=== PATIENT | female | born 1990 | race Two or more races ===

== ENCOUNTER 2017-02-12 00:02 | Emergency (ER) | payer OTHER ==
[2017-02-12] MEDS ORDERED: ONDANSETRON 4 MG/2 ML VIAL IVP STA (00:15)
[2017-02-12] MEDS ORDERED: HYDROmorphone 1 MG/ML SYRINGE IVP STA (00:15)
[2017-02-12] MEDS ORDERED: SODIUM CHLORIDE 0.9% 1,000 ML IV ONE ×2 (00:15)
--- NOTE | 2017-02-12 00:17 | ED Physician Documentation ---
PD HPI NVD - Stated complaint Stated Complaint: ABDOMINAL PAIN - Chief complaint Chief Complaint: Abd Pain - History obtained from History obtained from: Patient, Family - History of Present Illness Timing - onset: How many days ago (3) Timing - duration: Days (3) Timing - details: Gradual onset, Waxing and waning Pain level max: 8 Pain level now: 8 Associated symptoms: Abdominal pain (epigastric). No: Hematemesis, Melena, Hematochezia, Dizzy, Near syncope / syncope, Loss of appetite, Weight loss, Dysuria, Hematuria Contributing factors: No: Sick contact, Bad food, Travel, Recent antibiotics, Alcohol use, Anticoagulated, Diabetes Improved by: Other (nothing) Worsened by: Eating Similar symptoms before: Has not had sx before Recently seen: Not recently seen Review of Systems Ten Systems: 10 systems reviewed and negative Constitutional: denies: Fever, Chills, Myalgias Ears: denies: Ear pain Nose: denies: Rhinorrhea / runny nose, Congestion Cardiac: denies: Chest pain / pressure Respiratory: denies: Cough, Wheezing GI: reports: Abdominal Pain, Nausea, Vomiting, Diarrhea. denies: Constipation, Hematemesis, Bloody / black stool : denies: Dysuria, Frequency, Hesitancy, Now EGA Skin: denies: Rash Musculoskeletal: denies: Neck pain, Back pain Neurologic: denies: Headache PD PAST MEDICAL HISTORY - Past Medical History Respiratory: Asthma Psych: ADD/ADHD - Past Surgical History Past Surgical History: No - Present Medications Home Medications: Ambulatory Orders Medication Instructions Recorded Confirmed Famotidine [Pepcid] 20 mg PO BID #30 tablet 02/12/17 Ondansetron Odt [Zofran] 4 mg TL Q6H PRN #10 tablet 02/12/17 - Allergies Allergies/Adverse Reactions: Allergies Allergy/AdvReac Type Severity Reaction Status Date / Time Penicillins Allergy Unknown Verified 03/01/14 16:41 - Social History Does the pt smoke?: No Smoking Status: Former smoker Does the pt drink ETOH?: Yes Does the pt have substance abuse?: No - POLST Patient has POLST: No PD ED PE NORMAL - Vitals Vital signs reviewed: Yes - General General: Alert and oriented X 3, No acute distress, Well developed/nourished - HEENT HEENT: PERRL, Moist mucous membranes - Neck Neck: Supple, no meningeal sign - Cardiac Cardiac: RRR, Strong equal pulses - Respiratory Respiratory: No respiratory distress, Clear bilaterally - Abdomen Abdomen: Soft, Non distended, Other (TTP epigastric without peritoneal signs. neg murphys) - Back Back: No CVA TTP, No spinal TTP - Derm Derm: Warm and dry - Neuro Neuro: Alert and oriented X 3 - Psych Psych: Normal mood, Normal affect Results - Vitals Vitals: Vital Signs - 24 hr 02/12/17 02/12/17 00:08 01:21 Temperature 36.5 C 36.6 C Heart Rate 70 78 Respiratory 18 18 Rate Blood Pressure 136/73 H 99/55 L O2 Saturation 99 100 Oxygen O2 Source Room air - Labs Labs: Laboratory Tests 02/12/17 02/12/17 00:20 00:20 WBC 11.9 H RBC 4.89 Hgb 13.2 Hct 37.7 MCV 77.0 L MCH 27.0 MCHC 35.0 RDW 13.5 Plt Count 240 MPV 8.0 Neut # 9.8 H Lymph # 1.3 L [place] # 0.6 Eos # 0.2 Baso # 0.1 Absolute Nucleated RBC 0.00 Nucleated RBCs 0.0 Sodium 139 Potassium 3.1 L Chloride 103 Carbon Dioxide 24 Anion Gap 12.0 BUN 13 Creatinine 0.6 Estimated GFR (MDRD) 123 Glucose 143 H Calcium 8.5 Total Bilirubin 0.5 AST 49 H ALT 32 Alkaline Phosphatase 112 Total Protein 7.5 Albumin 4.3 Globulin 3.2 Albumin/Globulin Ratio 1.3 Lipase 16 L PD MEDICAL DECISION MAKING - ED course Complexity details: reviewed results, re-evaluated patient, considered differential, d/w patient, d/w family ED course: Patient is a 26-year-old female who presents to the emergency department with nausea, vomiting, diarrhea for the past 3 days. Worsen tonight. Has been taken Imodium without relief. No recent antibiotics. No diarrhea here. Tolerating p.o. without difficulty. Pain and nausea resolved with pain medications, IV fluids, Zofran. Burning in the esophagus resolved with GI cocktail. Will place on an H2 lalit and Zofran for home. We will continue supportive care and follow-up with her doctor. Patient is afebrile. Abdomen was soft, nontender nondistended on serial examination. Patient and family counseled regarding signs and symptoms for which I believe and urgent re- evaluation would be necessary. Patient with good understanding of and agreement to plan and is comfortable going home at this time This document was made in part using voice recognition software. While efforts are made to proofread this document, sound alike and grammatical errors may occur. Departure - Departure Disposition: 01 Home, Self Care Clinical Impression: Gastroenteritis Condition: Good Instructions: ED Gastroenteritis Viral Follow-Up: Aleks Bernstein DO [Primary Care Provider] - Within 3 Days Prescriptions: Famotidine [Pepcid] 20 mg PO BID #30 tablet Ondansetron Odt [Zofran] 4 mg TL Q6H PRN #10 tablet PRN Reason: Nausea / Vomiting Comments: Drink plenty of fluids and rest. Return if you worsen. Discharge Date/Time: 02/12/17 01:40
[2017-02-12] MEDS ORDERED: ONDANSETRON 4 MG/2 ML VIAL ONE (00:22)
[2017-02-12] MEDS ORDERED: HYDROmorphone 1 MG/ML SYRINGE ONE (00:22)
[2017-02-12 00:32] LABS: BASOPHILS # (AUTO) 0.1 10^3/uL (0.0-0.1); BASOPHILS % (AUTO) 0.6 %; EOSINOPHILS # (AUTO) 0.2 10^3/uL (0.0-0.7); EOSINOPHILS % (AUTO) 1.4 %; HCT - HEMATOCRIT 37.7 % (37.0-47.0); HGB - HEMOGLOBIN 13.2 g/dL (12.0-16.0); LYMPHOCYTES # (AUTO) 1.3 10^3/uL (1.5-3.5); MONOCYTES # (AUTO) 0.6 10^3/uL (0.0-1.0); MONOCYTES % (AUTO) 4.9 %; NEUTROPHILS # (AUTO) 9.8 10^3/uL (1.5-6.6); NEUTROPHILS % (AUTO) 82.1 %; RED BLOOD COUNT 4.89 10^6/uL (4.20-5.40); RED CELL DISTRIBUTION WIDTH 13.5 % (12.0-15.0); UNCORRECTED WHITE BLOOD COUNT 11.9 x10^3/uL; WHITE BLOOD COUNT 11.9 x10^3/uL (4.8-10.8)
[2017-02-12 00:40] LABS: ALBUMIN/GLOBULIN RATIO 1.3 (1.0-2.2); BILIRUBIN,TOTAL 0.5 mg/dL (0.2-1.0); CALCIUM 8.5 mg/dL (8.5-10.3); CREATININE 0.6 mg/dL (0.4-1.0); POTASSIUM 3.1 mmol/L (3.5-5.0); TOTAL PROTEIN 7.5 g/dL (6.7-8.2)
[2017-02-12] MEDS ORDERED: LIDOCAINE VISCOUS 2% 15 ML UDC MM STA (00:46)
[2017-02-12] MEDS ORDERED: SUCRALFATE 1 GM/10 ML UDC PO STA (00:46)
[2017-02-12] MEDS ORDERED: MAG HYDROX/AL HYDROX/SIMETH 30 ML UDC PO STA (00:46)
[2017-02-12] MEDS ORDERED: PHENobarb/HYOSCY/ATROPINE/SCOP 5 ML SYRINGE PO STA (00:46)
[2017-02-12] MEDS ORDERED: FAMOTIDINE 20 MG TABLET PO STA (00:46)
[2017-02-12] MEDS ORDERED: LIDOCAINE VISCOUS 2% 15 ML UDC MM ONE (00:48)
[2017-02-12] MEDS ORDERED: MAG HYDROX/AL HYDROX/SIMETH 30 ML UDC ONE (00:49)
[2017-02-12] MEDS ORDERED: FAMOTIDINE 20 MG TABLET ONE (00:49)
[2017-02-12] MEDS ORDERED: PHENobarb/HYOSCY/ATROPINE/SCOP 5 ML SYRINGE PO ONE (00:49)
[2017-02-12] MEDS ORDERED: SUCRALFATE 1 GM/10 ML UDC ONE (00:49)
[2017-02-12 01:22] VITALS: BP 99/55
== END 2017-02-12 01:40 | disposition home or self-care (01) ==
LOC: ED 00:02
DX: K52.9 Noninfective gastroenteritis and colitis, unspecified (principal); J45.909 Unspecified asthma, uncomplicated; Z87.891 Personal history of nicotine dependence
CPT/HCPCS: 36415; 80053; 83690; 85025; 96374; 96375; 99283; 99284; A9270; J1170

== ENCOUNTER 2017-12-30 13:50 | Outpatient (CLI) | payer OTHER ==
[2017-12-30 15:00] LABS: BILIRUBIN,URINE NEGATIVE (NEGATIVE); GLUCOSE, URINE (UA) NEGATIVE (NEGATIVE); KETONES,URINE (UA) NEGATIVE (NEGATIVE); LEUKOCYTE ESTERASE, URINE NEGATIVE (NEGATIVE); NITRITE,URINE NEGATIVE (NEGATIVE); OCCULT BLOOD,URINE NEGATIVE (NEGATIVE); PROTEIN,URINE NEGATIVE (NEGATIVE); UROBILINOGEN,URINE 0.2 (NORMAL) E.U./dL (NORMAL)
[2017-12-30 15:14] VITALS: BP 123/76
[2017-12-30 15:17] LABS: BACTERIA,URINE None Seen /HPF (None Seen); CLARITY,URINE CLEAR (CLEAR); RBC,URINE 0-5 /HPF (0-5); SQUAMOUS EPITHELIAL CELL,UR MOD Squamous (<= Few)
== END 2017-12-30 16:15 | disposition home or self-care (01) ==
LOC: WFO 13:50 → FBP 13:52 → WFO 16:15
PROVIDERS: ATTEND Obstetrics & Gynecology
DX: O36.8120 Decreased fetal movements, second trimester, not applicable or unspecified (principal); Z3A.25 25 weeks gestation of pregnancy; O99.89 Other specified diseases and conditions complicating pregnancy, childbirth and the puerperium; R10.30 Lower abdominal pain, unspecified
CPT/HCPCS: 81001; 87086; 99213

== ENCOUNTER 2019-06-16 14:32 | Emergency (ER) | payer OTHER ==
[2019-06-16 14:59] VITALS: BP 128/73
[2019-06-16 15:21] LABS: BILIRUBIN,URINE NEGATIVE (NEGATIVE); GLUCOSE, URINE (UA) NEGATIVE (NEGATIVE); KETONES,URINE (UA) NEGATIVE (NEGATIVE); LEUKOCYTE ESTERASE, URINE NEGATIVE (NEGATIVE); NITRITE,URINE NEGATIVE (NEGATIVE); OCCULT BLOOD,URINE NEGATIVE (NEGATIVE); PH,URINE 6.5 PH (5.0-7.5); PROTEIN,URINE NEGATIVE (NEGATIVE); UROBILINOGEN,URINE 0.2 (NORMAL) E.U./dL (NORMAL)
[2019-06-16 15:24] LABS: CLARITY,URINE CLEAR (CLEAR); HCG UR QUAL NEGATIVE
[2019-06-16 15:26] LABS: BASOPHILS # (AUTO) 0.1 10^3/uL (0.0-0.1); EOSINOPHILS # (AUTO) 0.2 10^3/uL (0.0-0.7); HGB - HEMOGLOBIN 12.9 g/dL (12.0-16.0); LYMPHOCYTES % (AUTO) 26.9 %; MEAN CORPUSCULAR HGB CONC 33.3 g/dL (32.0-36.0); MEAN PLATELET VOLUME 10.3 fL (7.9-10.8); MONOCYTES # (AUTO) 0.5 10^3/uL (0.0-1.0); MONOCYTES % (AUTO) 6.4 %; NEUTROPHILS # (AUTO) 4.6 10^3/uL (1.5-6.6); NEUTROPHILS % (AUTO) 62.4 %; PLT - PLATELET COUNT 298 10^3/uL (130-450); RED BLOOD COUNT 4.78 10^6/uL (4.20-5.40); RED CELL DISTRIBUTION WIDTH 13.1 % (12.0-15.0); WHITE BLOOD COUNT 7.4 x10^3/uL (4.8-10.8)
[2019-06-16 15:48] LABS: ALBUMIN 4.5 g/dL (3.2-5.5); ALBUMIN/GLOBULIN RATIO 1.4 (1.0-2.2); BILIRUBIN,TOTAL 0.5 mg/dL (0.2-1.0); CALCIUM 9.2 mg/dL (8.5-10.3); CREATININE 0.6 mg/dL (0.4-1.0); TOTAL PROTEIN 7.7 g/dL (6.7-8.2)
== END 2019-06-16 17:52 | disposition left against medical advice (07) ==
LOC: ED 14:32
DX: Z53.21 Procedure and treatment not carried out due to patient leaving prior to being seen by health care provider (principal)
CPT/HCPCS: 36415; 80053; 81001; 81003; 81025; 83690; 85025; 87086

== ENCOUNTER 2019-09-08 09:00 | Emergency (ER) | payer OTHER ==
[2019-09-08 09:19] VITALS: BP 140/74
--- NOTE | 2019-09-08 09:32 | ED Physician Documentation ---
PD HPI URI - Stated complaint Stated Complaint: COUGH/FEMALE /SORE THROAT - Chief complaint Chief Complaint: General - History obtained from History obtained from: Patient - History of Present Illness Timing - onset: How many days ago (2) Timing duration: Days (2) Timing details: Abrupt onset, Still present Associated symptoms: Fever, Nasal congestion, Sore throat Contributing factors: Sick contact (her kids have been sick the past week), Other (also is concerned about possible retained tampon from couple days ago; no noted vag discharge but does not remember if removed it.) Similar symptoms before: Has not had sx before Review of Systems Constitutional: reports: Fever, Chills Nose: reports: Rhinorrhea / runny nose, Congestion Throat: denies: Sore throat Respiratory: reports: Cough GI: denies: Nausea, Vomiting, Diarrhea : reports: Vaginal bleeding (ending menstrual period). denies: Discharge Skin: denies: Rash, Lesions PD PAST MEDICAL HISTORY - Past Medical History Respiratory: Asthma Psych: ADD/ADHD - Past Surgical History Past Surgical History: No - Present Medications Home Medications: Ambulatory Orders Medication Instructions Recorded Confirmed Famotidine [Pepcid] 20 mg PO BID #30 tablet 02/12/17 Ondansetron Odt [Zofran] 4 mg TL Q6H PRN #10 tablet 02/12/17 Benzonatate [Tessalon Perle] 100 - 200 mg PO TID PRN #30 capsule 09/08/19 dexAMETHasone [Decadron] 4 mg PO DAILY #5 tablet 09/08/19 diphenhydrAMINE [Benadryl] 25 mg PO Q6H PRN #30 capsule 09/08/19 - Allergies Allergies/Adverse Reactions: Allergies Allergy/AdvReac Type Severity Reaction Status Date / Time Penicillins Allergy Unknown Verified 09/08/19 09:16 - Social History Does the pt smoke?: No Smoking Status: Former smoker Does the pt drink ETOH?: Yes Does the pt have substance abuse?: No - POLST Patient has POLST: No PD ED PE NORMAL - Vitals Vital signs reviewed: Yes - General General: Alert and oriented X 3, Well developed/nourished - HEENT HEENT: Ears normal, Moist mucous membranes, Pharynx benign, Other (nasal congestion) - Neck Neck: Supple, no meningeal sign, No adenopathy - Cardiac Cardiac: RRR, No murmur - Respiratory Respiratory: Clear bilaterally - Abdomen Abdomen: Soft, Non tender - Female Female : Fermentation Manager present, Other (normal exam with some menstrual blood in vault. No FB seen (could not lift cervix well to see behind it, but I don't think would be able to have a tampon in that area).) - Rectal Rectal: Deferred - Derm Derm: Normal color, Warm and dry Results - Vitals Vitals: Oxygen O2 Source Room air PD MEDICAL DECISION MAKING - ED course Complexity details: considered differential (sems like viral URI. Also she was concerned about retained tampon from couple days ago, so did vaginal exam, which did not show any FB. ), d/w patient Departure - Departure Disposition: 01 Home, Self Care Clinical Impression: Normal vaginal exam Upper respiratory infection Qualifiers: URI type: unspecified URI Qualified Code(s): J06.9 - Acute upper respiratory infection, unspecified Condition: Stable Record reviewed to determine appropriate education?: Yes Instructions: ED Upper Resp Infec No Abx Tx Follow-Up: Charity Vicente MD [Primary Care Provider] - Prescriptions: Benzonatate [Tessalon Perle] 100 - 200 mg PO TID PRN #30 capsule PRN Reason: Cough dexAMETHasone [Decadron] 4 mg PO DAILY #5 tablet diphenhydrAMINE [Benadryl] 25 mg PO Q6H PRN #30 capsule PRN Reason: Cough Comments: Stay well-hydrated. Decadron steroid for inflammation of the airways daily for 5 more days. Tessalon if needed for cough suppression. Stay well-hydrated. Tylenol ibuprofen for fevers and pains. You can use Benadryl also if needed for congestion and cough. Anticipate illness for several days to week. I did not see any retained tampons on the vaginal exam. Discharge Date/Time: 09/08/19 11:07
[2019-09-08] MEDS ORDERED: DEXAMETHASONE 10 MG/ML VIAL PO STA (09:52)
[2019-09-08] MEDS ORDERED: BENZONATATE 100 MG CAPSULE PO STA (09:52)
[2019-09-08] MEDS ORDERED: CHERRY SYRUP 10 ML UDC PO ONE (09:52)
[2019-09-08] MEDS ORDERED: diphenhydrAMINE 25 MG CAPSULE PO STA (09:52)
== END 2019-09-08 11:07 | disposition home or self-care (01) ==
LOC: ED 09:00
DX: J06.9 Acute upper respiratory infection, unspecified (principal); Z87.891 Personal history of nicotine dependence
CPT/HCPCS: 99283; A9270

== ENCOUNTER 2019-10-26 15:47 | Emergency (ER) | payer OTHER ==
[2019-10-26] MEDS ORDERED: ALBUTEROL NEB 2.5 MG/3 ML INH STA (16:08)
--- NOTE | 2019-10-26 16:09 | ED Physician Documentation ---
PD HPI URI - Stated complaint Stated Complaint: SOA,COUGH, NAUSEA - Chief complaint Chief Complaint: Resp - History obtained from History obtained from: Patient (Productive cough since yesterday with shortness of breath. No fevers or wheezing. No chest pain. No leg pain or swelling. Her whole family has been sick with URI symptoms.) Review of Systems Constitutional: denies: Fever, Chills Nose: reports: Rhinorrhea / runny nose, Congestion. denies: Sinus pressure / pain Throat: denies: Sore throat Cardiac: denies: Chest pain / pressure, Palpitations Respiratory: reports: Dyspnea, Cough GI: denies: Abdominal Pain PD PAST MEDICAL HISTORY - Past Medical History Respiratory: Asthma Psych: ADD/ADHD - Past Surgical History Past Surgical History: No - Present Medications Home Medications: Ambulatory Orders Medication Instructions Recorded Confirmed Albuterol Sulf [Ventolin Hfa 1 - 2 puffs INH Q4HR PRN #1 inhaler 10/26/19 Inhaler] Copper [Paragard T 380-A] 1 each IY 10/26/19 guaiFENesin/CODEINE [Robitussin AC] 5 - 10 ml PO Q6H PRN #120 ml 10/26/19 - Allergies Allergies/Adverse Reactions: Allergies Allergy/AdvReac Type Severity Reaction Status Date / Time Penicillins Allergy Unknown Verified 10/26/19 15:59 - Social History Does the pt smoke?: No Smoking Status: Former smoker Does the pt drink ETOH?: Yes Does the pt have substance abuse?: No - POLST Patient has POLST: No PD ED PE NORMAL - Vitals Vital signs reviewed: Yes - General General: Alert and oriented X 3, No acute distress - HEENT HEENT: Ears normal, Pharynx benign - Neck Neck: Supple, no meningeal sign, No bony TTP - Cardiac Cardiac: RRR, No murmur - Respiratory Respiratory: No respiratory distress, Clear bilaterally - Abdomen Abdomen: Non tender - Extremities Extremities: No edema, No calf tenderness / cord - Neuro Neuro: Alert and oriented X 3, Normal speech Results - Vitals Vitals: Vital Signs - 24 hr 10/26/19 10/26/19 15:56 16:23 Temperature 36.1 C L Heart Rate 91 90 Respiratory 24 20 Rate Blood Pressure 128/61 O2 Saturation 98 Oxygen O2 Source Room air - Rads (name of study) 2v chest Radiology: EMP read contemporaneously (normal) PD MEDICAL DECISION MAKING - ED course ED course: 29-year-old woman with productive cough, shortness of breath. No wheezing but felt better after albuterol here. I considered pulmonary embolism in this patient. Clinically the pretest probability of pulmonary embolism is less than 15%. I applied to the PERC rules as follows: The patient's age is under 50, heart rate less than 100, oxygen saturation greater than 94%, the patient does not have a history of DVT or PE. Patient has no recent trauma or surgery. The patient has no hemoptysis. The patient is not on exogenous estrogens. The patient does not have clinical signs suggesting DVT. As such the patient ruled out for pulmonary embolism by PERC criteria. Departure - Departure Disposition: 01 Home, Self Care Clinical Impression: Viral URI Condition: Good Record reviewed to determine appropriate education?: Yes Instructions: ED URI Viral Prescriptions: Albuterol Sulf [Ventolin Hfa Inhaler] 1 - 2 puffs INH Q4HR PRN #1 inhaler PRN Reason: Shortness Of Air/Wheezing guaiFENesin/CODEINE [Robitussin AC] 5 - 10 ml PO Q6H PRN #120 ml PRN Reason: Cough Comments: Return for new or worsening symptoms. Follow-up with your doctor towards the end of the week for recheck.
--- NOTE | 2019-10-26 17:01 | XRAY Report ---
Reason: cough dyspnea Procedure Date: 10/26/2019 Accession Number: [id number] / [id number] Procedure: XR - Chest 2 View X-Ray CPT Code: 23521 Final Report FULL RESULT: EXAM: CHEST RADIOGRAPHY EXAM DATE: 10/26/2019 04:23 PM. CLINICAL HISTORY: Cough dyspnea. COMPARISON: None. TECHNIQUE: 2 views. FINDINGS: Lungs/Pleura: No focal opacities evident. No pleural effusion. No pneumothorax. Normal volumes. Mediastinum: Heart and mediastinal contours are unremarkable. Other: None. IMPRESSION: No acute intrathoracic plain film abnormality. RADIA
[2019-10-26 17:18] VITALS: BP 120/80
== END 2019-10-26 17:16 | disposition home or self-care (01) ==
LOC: ED 15:47
DX: J06.9 Acute upper respiratory infection, unspecified (principal); J45.909 Unspecified asthma, uncomplicated; Z87.891 Personal history of nicotine dependence
CPT/HCPCS: 71046; 94640; 99283; 99284

== ENCOUNTER 2019-11-16 17:56 | Emergency (ER) | payer OTHER ==
[2019-11-16 18:05] VITALS: BP 148/74
[2019-11-16] MEDS ORDERED: DEXAMETHASONE 10 MG/ML VIAL PO STA (18:28)
[2019-11-16] MEDS ORDERED: CHERRY SYRUP 10 ML UDC PO ONE (18:28)
--- NOTE | 2019-11-16 18:31 | ED Physician Documentation ---
PD HPI URI - Stated complaint Stated Complaint: COUGH - Chief complaint Chief Complaint: Resp - History obtained from History obtained from: Patient - History of Present Illness Timing - onset: How many months ago (2) Timing duration: Months (2) Timing details: Gradual onset, Still present, Waxing and waning Associated symptoms: Nasal congestion, Rhinorrhea, Swollen nodes, Productive cough, Dyspnea Contributing factors: Sick contact Improves by: Rest, Medication, MDI/nebulizer Similar symptoms before: Diagnosis (bronchitis) Recently seen: Clinic, Emergency Dept - Additional information Additional information: 29-year-old female has developed cough after [place] she has had intermittent symptoms since then. Since the beginning of October she has had a cough productive of yellow-green phlegm and this is not gone away. She was seen here in the emergency department diet diagnosed with a viral URI given codeine and an inhaler she eventually went into see her primary care doctor was given a Z-Jose De Jesus and started this last week without any change in her symptoms. She continues to cough up yellow and green phlegm she feels the inhaler helps somewhat. She has nasal congestion and ear pain. Review of Systems Constitutional: denies: Fever Eyes: denies: Decreased vision Ears: reports: Ear pain Nose: reports: Rhinorrhea / runny nose, Congestion Throat: denies: Sore throat Cardiac: denies: Chest pain / pressure, Palpitations Respiratory: reports: Dyspnea, Cough GI: denies: Vomiting PD PAST MEDICAL HISTORY - Past Medical History Respiratory: Asthma Psych: ADD/ADHD - Past Surgical History Past Surgical History: No - Present Medications Home Medications: Ambulatory Orders Medication Instructions Recorded Confirmed Albuterol Sulf [Ventolin Hfa 1 - 2 puffs INH Q4HR PRN #1 inhaler 10/26/19 Inhaler] Copper [Paragard T 380-A] 1 each IY 10/26/19 guaiFENesin/CODEINE [Robitussin AC] 5 - 10 ml PO Q6H PRN #120 ml 10/26/19 Cefdinir 300 mg PO BID #20 capsule 11/16/19 - Allergies Allergies/Adverse Reactions: Allergies Allergy/AdvReac Type Severity Reaction Status Date / Time Penicillins Allergy Unknown Verified 11/16/19 18:03 - Social History Does the pt smoke?: No Smoking Status: Former smoker Does the pt drink ETOH?: Yes Does the pt have substance abuse?: No - POLST Patient has POLST: No PD ED PE NORMAL - Vitals Vital signs reviewed: Yes (hypertensive ) - General General: No acute distress, Well developed/nourished - HEENT HEENT: Atraumatic, PERRL, EOMI, Other (Mild inflammation to the right TM with retained landmarks the left is clear. Pharynx is with mildly edematous uvula and postnasal drainage.) - Neck Neck: Supple, no meningeal sign, No bony TTP - Cardiac Cardiac: RRR, No murmur - Respiratory Respiratory: No respiratory distress, Other (diminished breath sounds without focal rhonchi) - Abdomen Abdomen: Soft, Non tender - Back Back: No CVA TTP, No spinal TTP - Derm Derm: Normal color, Warm and dry, No rash - Extremities Extremities: No deformity, No edema - Neuro Neuro: Alert and oriented X 3, dental instrument maker 2-12 intact, No motor deficit, No sensory deficit, Normal speech Eye Opening: Spontaneous Motor: Obeys Commands Verbal: Oriented GCS Score: 15 - Psych Psych: Normal mood, Normal affect Results - Vitals Vitals: Vital Signs - 24 hr 11/16/19 18:03 Temperature 37.2 C Heart Rate 91 Respiratory 18 Rate Blood Pressure 148/74 H O2 Saturation 99 Oxygen O2 Source Room air PD MEDICAL DECISION MAKING - ED course Complexity details: reviewed old records, reviewed results, re-evaluated patient, considered differential, d/w patient ED course: 29-year-old female with persistent productive cough has failed a azithromycin. She is allergic to PCN. She is placed onto cefdinir after receiving dexamethasone here in the emergency department Departure - Departure Disposition: 01 Home, Self Care Clinical Impression: Otitis media Qualifiers: Otitis media type: suppurative Chronicity: acute Laterality: right Recurrence: non-recurrent Spontaneous tympanic membrane rupture: without spontaneous rupture Qualified Code(s): H66.001 - Acute suppurative otitis media without spontaneous rupture of ear drum, right ear Condition: Stable Instructions: ED Otitis Media Acute Adult Follow-Up: Charity Vicente MD [Primary Care Provider] - Prescriptions: Cefdinir 300 mg PO BID #20 capsule
== END 2019-11-16 18:45 | disposition home or self-care (01) ==
LOC: ED 17:56
DX: H66.001 Acute suppurative otitis media without spontaneous rupture of ear drum, right ear (principal); Z87.891 Personal history of nicotine dependence
CPT/HCPCS: 99282; 99284; A9270

== ENCOUNTER 2019-12-02 14:37 | Emergency (ER) | payer OTHER ==
[2019-12-02 14:43] VITALS: BP 141/70
[2019-12-02] MEDS ORDERED: KETOROLAC 60 MG/2 ML VIAL IM STA (15:06)
--- NOTE | 2019-12-02 15:09 | ED Physician Documentation ---
History of Present Illness - Stated complaint Stated Complaint: COUGH, LT SIDE PX - Chief complaint Chief Complaint: General - History obtained from History obtained from: Patient (29-year-old female comes in today for continued cough that she developed shortly after [place] with intermittent symptoms since then. Since the beginning of October she seems to have a productive cough with yellow-green phlegm. She has been seen in the emergency room twice here diagnosed with viral URI. And also acute otitis media one time she has been on antibiotics twice for cough, without any relief of symptoms. Yesterday she was at her primary care physician's office body get a chest x-ray where she had a coughing episode and developed severe left-sided rib pain. The chest x- ray at her physician's office showed no pulmonary issues and no fracture that they can see. Today she is in because of the pain is so bad that is difficult for her to take a deep breath.) Review of Systems Constitutional: denies: Fever, Chills, Fatigue, Sweats Eyes: reports: Reviewed and negative Ears: reports: Reviewed and negative Nose: reports: Reviewed and negative Throat: reports: Reviewed and negative Cardiac: reports: Reviewed and negative Respiratory: reports: Cough, Other (ongoing since July, has had two eD visits and is currently being evaluated and worked up by PCP.) PD PAST MEDICAL HISTORY - Past Medical History Respiratory: Asthma Psych: ADD/ADHD - Past Surgical History Past Surgical History: No - Present Medications Home Medications: Ambulatory Orders Medication Instructions Recorded Confirmed Albuterol Sulf [Ventolin Hfa 1 - 2 puffs INH Q4HR PRN #1 inhaler 10/26/19 Inhaler] Copper [Paragard T 380-A] 1 each IY 10/26/19 guaiFENesin/CODEINE [Robitussin AC] 5 - 10 ml PO Q6H PRN #120 ml 10/26/19 Cefdinir 300 mg PO BID #20 capsule 11/16/19 Hydrocodone/Acetaminophen 1 - 2 each PO Q6H PRN #10 tablet 12/02/19 [Hydrocodon-Acetaminophen 5-325] - Allergies Allergies/Adverse Reactions: Allergies Allergy/AdvReac Type Severity Reaction Status Date / Time Penicillins Allergy Unknown Verified 12/02/19 14:41 - Social History Does the pt smoke?: No Smoking Status: Former smoker Does the pt drink ETOH?: Yes Does the pt have substance abuse?: No - POLST Patient has POLST: No PD ED PE NORMAL - General General: Alert and oriented X 3, Well developed/nourished, Other (in obious pain w/ deep inspiration or coughing) - HEENT HEENT: Atraumatic, PERRL, EOMI - Neck Neck: No adenopathy - Cardiac Cardiac: RRR, No murmur, No gallop - Respiratory Respiratory: No respiratory distress, Clear bilaterally PD ED PE EXPANDED - Back Back: Other (TTP on the left posterior / lateral inferior ribs) Results - Vitals Vitals: Vital Signs - 24 hr 12/02/19 14:41 Temperature 36.8 C Heart Rate 85 Respiratory 18 Rate Blood Pressure 141/70 H O2 Saturation 98 Oxygen O2 Source Room air PD MEDICAL DECISION MAKING - ED course Complexity details: reviewed results (reviewed radiologist final report), re- evaluated patient, considered differential, d/w patient Departure - Departure Disposition: 01 Home, Self Care Clinical Impression: Intercostal muscle strain Qualifiers: Encounter type: initial encounter Qualified Code(s): S29.011A - Strain of muscle and tendon of front wall of thorax, initial encounter Condition: Good Instructions: ED Cough Chronic Cause Unkn Prescriptions: Hydrocodone/Acetaminophen [Hydrocodon-Acetaminophen 5-325] 1 - 2 each PO Q6H PRN #10 tablet PRN Reason: Pain Comments: As I discussed with you in the ER today, your chest x-ray looks normal, no acute fractures noted to the ribs on the left side. He most likely have a torn intercostal muscle from coughing so hard. Also as we discussed you need to follow-up with your primary care physician and get a possible referral to a clamp truck driver for further starting for asthma/pulmonary disease processes. He can use Tylenol ibuprofen for pain control, and you can use the hydrocodone for severe pain.
--- NOTE | 2019-12-02 15:46 | XRAY Report ---
Reason: left lateral rib pain Procedure Date: 12/02/2019 Accession Number: [id number] / [id number] Procedure: XR - Ribs w/PA Chest LT CPT Code: Final Report FULL RESULT: EXAM: LEFT RIB RADIOGRAPHY EXAM DATE: 12/02/2019 03:29 PM. CLINICAL HISTORY: Left flank/posterior lateral lower rib pain since hard cough yesterday. COMPARISON: CHEST 2 VIEW 10/26/2019 4:14 PM. TECHNIQUE: 3 views including AP chest. BB marker placed in the symptomatic area. FINDINGS: Bones: Slight contour deformity of the lateral left 11th rib. No convincing fracture lucency is identified. Other left ribs unremarkable. There is mild dextroscoliosis centered over the lower thoracic spine. Lungs: Lungs grossly clear. No pneumothorax or pleural effusion. Mediastinum: Heart and cardiomediastinal contours are unremarkable. IMPRESSION: 1. No acute fracture lucency of the left ribs identified. 2. Subtle contour deformity lateral left 11th rib, acuity indeterminate. 3. Clear lungs. RADIA
== END 2019-12-02 15:55 | disposition home or self-care (01) ==
LOC: ED 14:37
DX: S29.011A Strain of muscle and tendon of front wall of thorax, initial encounter (principal); Z87.891 Personal history of nicotine dependence; X58.XXXA Exposure to other specified factors, initial encounter; Y93.89 Activity, other specified
CPT/HCPCS: 96372; 99283; 99284

== ENCOUNTER 2020-12-30 08:11 | Outpatient (CLI) | payer OTHER ==
--- NOTE | 2020-12-30 08:59 | XRAY Report ---
PROCEDURE: Knee Standing RT INDICATIONS: RIGHT KNEE WEIGHTBEARING TECHNIQUE: 4 views of the right knee, and 1 views of the left knee. COMPARISON: None. FINDINGS: Bones: No acute fractures or dislocations. No suspicious bony lesions. Joint spaces appear grossly preserved. Small right knee joint effusion. IMPRESSION: Small right knee effusion. If the patient's pain or other symptoms persist, consider further evaluati on with MRI. Reviewed by: Jose Carlisle MD on 12/30/2020 8:57 AM PDT Approved by: Jose Carlisle MD on 12/30/2020 8:57 AM PDT Station ID: [id number]
== END 2020-12-30 23:59 | disposition home or self-care (01) ==
LOC: DI.N 08:11
PROVIDERS: ATTEND Physician Assistant
DX: M25.461 Effusion, right knee (principal)

== ENCOUNTER 2022-06-15 16:00 | Emergency (ER) | payer OTHER ==
[2022-06-15] MEDS: METOCLOPRAMIDE 10 MG/2 ML VIAL IVP STA (17:23)
[2022-06-15] MEDS: diphenhydrAMINE INJ 50 MG/ML VIAL IVP STA (17:23)
[2022-06-15] MEDS: SODIUM CHLORIDE 0.9% 1,000 ML IV STA (17:23)
--- NOTE | 2022-06-15 17:23 | ED Physician Documentation ---
PD HPI HEADACHE - Stated complaint Stated Complaint: HEADACHE - Chief complaint Chief Complaint: Neuro - History obtained from History obtained from: Patient - Additional information Additional information: Patient is a 31-year-old female presenting for evaluation of sudden onset of headache that started around 1430 today. Patient reports she was on the phone with her . She describes it as feeling like she got hit in the back of the head. She reports feeling near syncopal at the time with associated nausea. The headache has started to improve but she reports it is worse with sounds and somewhat with light. She has a history of headaches but states this feels different. She denies trauma or blood thinner use. She denies fever, chest pain or difficulty breathing. She denies recently being ill. Review of Systems Constitutional: denies: Fever Nose: denies: Congestion Throat: denies: Sore throat Cardiac: denies: Chest pain / pressure Respiratory: denies: Dyspnea GI: reports: Nausea. denies: Abdominal Pain, Vomiting : denies: Dysuria Skin: denies: Rash Musculoskeletal: denies: Back pain Neurologic: reports: Headache. denies: Syncope, Head injury PD PAST MEDICAL HISTORY - Past Medical History Past Medical History: Yes Cardiovascular: None Respiratory: Asthma Neuro: None Endocrine/Autoimmune: None GI: None REED MAN: None : Incontinence HEENT: None Psych: Depression, Anxiety, ADD/ADHD Musculoskeletal: None Derm: None - Past Surgical History Past Surgical History: No - Present Medications Home Medications: Ambulatory Orders Medication Instructions Recorded Confirmed Aripiprazole [Abilify] 2 mg PO HS 06/15/22 06/15/22 Fluoxetine HCl [Prozac] 20 mg PO DAILY 06/15/22 06/15/22 Methylphenidate HCl [Concerta] 27 mg PO DAILY 06/15/22 06/15/22 Methylphenidate HCl 10 mg ORAL DAILY PM 06/15/22 06/15/22 [Methylphenidate ER] Oxybutynin Chloride [Ditropan Xl] 15 mg PO DAILY 06/15/22 06/15/22 cloNIDine [Catapres] 0.1 mg PO HS 06/15/22 06/15/22 - Allergies Allergies/Adverse Reactions: Allergies Allergy/AdvReac Type Severity Reaction Status Date / Time Penicillins Allergy Unknown Verified 06/15/22 16:03 - Social History Does the pt smoke?: No Smoking Status: Former smoker Does the pt drink ETOH?: Yes Does the pt have substance abuse?: Yes Substance Use and Type: Marijuana - Immunizations Immunizations are current?: Yes - POLST Patient has POLST: No PD ED PE NORMAL - General General: Alert and oriented X 3, No acute distress, Well developed/nourished - HEENT HEENT: Atraumatic, PERRL, EOMI, Moist mucous membranes, Pharynx benign, Other (No photophobia with bright lights on in room) - Neck Neck: Supple, no meningeal sign, No bony TTP - Cardiac Cardiac: RRR, No murmur, Strong equal pulses - Respiratory Respiratory: No respiratory distress, Clear bilaterally - Abdomen Abdomen: Soft, Non tender, Non distended - Derm Derm: Warm and dry - Extremities Extremities: No edema - Neuro Neuro: Alert and oriented X 3, product manager financial services 2-12 intact, No motor deficit, No sensory deficit, Normal speech Results - Vitals Vitals: Vital Signs - 24 hr 06/15/22 06/15/22 06/15/22 16:04 17:57 19:14 Temperature 36.8 C Heart Rate 90 77 87 Respiratory 18 14 18 Rate Blood Pressure 127/85 H 120/62 110/78 O2 Saturation 98 95 94 Oxygen O2 Source Room air PD MEDICAL DECISION MAKING - ED course Complexity details: re-evaluated patient ED course: Pt presented for evaluation of headache, different than previous. CT head negative for bleed. Low concern for SAH given how well appearing pt is, neg CT within few hrs of onset, and based on history/exam. Pt appears comfortable, tolerating sitting in brightly lit and loud room in no distress. Doing better after migraine cocktail and agrees with plan for discharge. No menigismus. Normal neuro. Ambulatory at discharge. Advised on return precautions. 1817 - Patient sitting upright, using phone, bright lights on in room, no apparent distress. Departure - Departure Disposition: 01 Home, Self Care Clinical Impression: Migraine Qualifiers: Migraine type: without aura Status migrainosus presence: without status migrainosus Intractability: not intractable Qualified Code(s): G43.009 - Migraine without aura, not intractable, without status migrainosus Condition: Stable Instructions: ED Headache Migraine Comments: You were evaluated for a headache. A CT scan of your brain was obtained and does not show any internal bleeding or signs of a broken bone. You were given medications to help with your migraine. Please continue with hydration and rest in a quiet dark room. Discharge Date/Time: 06/15/22 19:14
[2022-06-15] MEDS: ACETAMINOPHEN 325 MG TABLET PO STA (18:02)
--- NOTE | 2022-06-15 18:17 | CT Report ---
PROCEDURE: CT brain without contrast INDICATIONS: headache 1430 TECHNIQUE: Noncontrast 5 mm thick angled axial sections acquired from the foramen magnum to the vertex. For rad iation dose reduction, the following was used: automated exposure control, adjustment of mA and/or k V according to patient size. COMPARISON: None. FINDINGS: Image quality: Excellent. CSF spaces: Basal cisterns are patent. No extra-axial fluid collections. Ventricles are normal in size and shape. Brain: No midline shift. No intracranial masses or hemorrhage. Vee-white matter interface is norm al. Skull and face: Calvarium and visualized facial bones are intact, without suspicious lesions. Sinuses: Visualized sinuses and mastoids are clear. IMPRESSION: Unremarkable CT brain without intracranial hemorrhage or mass effect Reviewed by: Jl Basilio MD on 06/15/2022 5:16 PM AKDT Approved by: Jl Basilio MD on 06/15/2022 5:16 PM AKDT Station ID: [id number]
[2022-06-15] MEDS: KETOROLAC 30 MG/ML VIAL IVP STA (18:25)
[2022-06-15 19:15] VITALS: BP 110/78
== END 2022-06-15 19:14 | disposition home or self-care (01) ==
LOC: ED 16:00
DX: G43.009 Migraine without aura, not intractable, without status migrainosus (principal); Z87.891 Personal history of nicotine dependence
CPT/HCPCS: 70450; 96374; 96375; 99282; 99284; A9270; J1200; J2765

== ENCOUNTER 2022-07-06 17:22 | Outpatient (CLI) | payer OTHER ==
--- NOTE | 2022-07-07 08:53 | MRI Report ---
PROCEDURE: BRAIN WO INDICATIONS: HEADACHE TECHNIQUE: Noncontrast axial T1 spin echo, axial T2 fast spin echo, sagittal and axial FLAIR, coronal T2 fast sp in echo, axial gradient echo, axial diffusion and ADC through the brain. COMPARISON: CT head without, 06/06/2022. FINDINGS: Image quality: Excellent. CSF Spaces: Basal cisterns are patent. No extra-axial fluid collections. Ventricles are normal in size and shape. Brain: No intracranial masses or hemorrhage. Pineal gland is slightly prominent. No discrete mass o r findings to suggest obstruction of the CSF flow. Vee/white matter interface is normal. Brainstem appears normal. Diffusion-weighted images demonstrate no acute ischemic insult. No chronic ischemic insults. Normal intravascular flow voids are present. Skull and face: Calvarium has normal marrow signal. Orbits appear normal. Sinuses: Sinuses and mastoids are clear. IMPRESSION: 1. Normal brain MRI exam. 2. Prominent pineal gland, which may be a normal variant. No discrete mass. Contrast-enhanced images would be helpful for further evaluation. Reviewed by: Lexis Roper MD on 07/07/2022 8:52 AM PDT Approved by: Lexis Roper MD on 07/07/2022 8:52 AM PDT Station ID: [id number]
== END 2022-07-06 17:23 | disposition home or self-care (01) ==
LOC: DI 17:22
PROVIDERS: ATTEND Student in an Organized Health Care Education/Training Program
DX: G44.89 Other headache syndrome (principal)

== ENCOUNTER 2024-02-18 16:47 | Emergency (ER) | payer OTHER ==
[2024-02-18 17:03] VITALS: O2SAT 100
--- NOTE | 2024-02-18 17:41 | ED Physician Documentation ---
History of Present Illness - Stated complaint Stated Complaint: DIZZINESS - Chief complaint Chief Complaint: Neuro - History obtained from History obtained from: Patient - Additonal information Additional information: 33-year-old woman who has ADD and depression. Otherwise healthy with no possibility of . For the last 2 weeks or so she has had intermittent episodes of dizziness. She states that she starts to feel an overwhelming sensation and then lightheaded and flushed. She is lost balance twice because of it and fallen with shoulder bruise. Episodes are becoming more frequent paco sandoval had about 6 today. There is no associated chest pain or trouble breathing. No pedal edema or calf pain. She did start venlafaxine about 2 weeks ago but says that these episodes proceeded to that. No recent travel but she is planning to travel to [place] in a few days. PD PAST MEDICAL HISTORY - Past Medical History Past Medical History: Yes Cardiovascular: None Respiratory: Asthma Neuro: None Endocrine/Autoimmune: None GI: None APPLICATION SYSTEMS ADMINISTRATOR: None : Incontinence HEENT: None Psych: Depression, Anxiety, ADD/ADHD Musculoskeletal: None Derm: None - Past Surgical History Past Surgical History: No - Present Medications Home Medications: Ambulatory Orders Medication Instructions Recorded Confirmed Lisdexamfetamine Dimesylate 60 mg PO DAILY 07/11/23 07/11/23 [Vyvanse] Trospium Chloride 20 mg PO DAILY 07/11/23 07/11/23 Venlafaxine ER [Effexor ER] 75 mg PO DAILY 07/11/23 07/11/23 - Allergies Allergies/Adverse Reactions: Allergies Allergy/AdvReac Type Severity Reaction Status Date / Time Penicillins Allergy Unknown Verified 02/18/24 16:54 - Social History Does the pt smoke?: No Smoking Status: Never smoker Does the pt drink ETOH?: Yes Does the pt have substance abuse?: Yes - Immunizations Immunizations are current?: Yes - POLST Patient has POLST: No PD ED PE NORMAL - Vitals Vital signs reviewed: Yes - General General: Alert and oriented X 3, No acute distress - HEENT HEENT: PERRL, EOMI - Neck Neck: Supple, no meningeal sign, No bony TTP - Cardiac Cardiac: RRR, No murmur - Respiratory Respiratory: No respiratory distress, Clear bilaterally - Abdomen Abdomen: Non tender - Derm Derm: Normal color, Warm and dry - Extremities Extremities: No edema, No calf tenderness / cord - Neuro Neuro: Alert and oriented X 3 Eye Opening: Spontaneous Motor: Obeys Commands Verbal: Oriented GCS Score: 15 Results - Vitals Vitals: Vital Signs - 24 hr 02/18/24 02/18/24 02/18/24 16:54 18:58 20:00 Temperature 36.8 C Heart Rate 90 72 74 Respiratory 16 16 17 Rate Blood Pressure 123/70 109/78 106/79 O2 Saturation 100 100 100 Oxygen O2 Source Room air - EKG (time done) 1812 EKG releavant findings:: EKG personally interpreted by author of this note. Relevant findings are: Rate: Rate (enter#) (76) Rhythm: NSR [place]: Normal Intervals: Normal IN QRS: Normal Ischemia: Normal ST segments - Labs Labs: Laboratory Tests 02/18/24 02/18/24 17:49 17:49 WBC 9.4 RBC 5.04 Hgb 14.1 Hct 41.0 MCV 81.3 MCH 28.0 MCHC 34.4 RDW 12.5 Plt Count 260 MPV 9.9 Neut # (Auto) 7.1 H Lymph # (Auto) 1.7 [place] # (Auto) 0.4 Eos # (Auto) 0.1 Baso # (Auto) 0.1 Absolute Nucleated RBC 0.00 Nucleated RBC % 0.0 Sodium 138 Potassium 3.4 L Chloride 101 Carbon Dioxide 31 Anion Gap 6.0 BUN 10 Creatinine 0.7 Estimated GFR (MDRD) 98 Glucose 88 Calcium 9.8 Magnesium 1.8 Total Bilirubin 0.4 AST 16 ALT 16 Alkaline Phosphatase 77 Total Protein 7.6 Albumin 4.8 Globulin 2.8 Albumin/Globulin Ratio 1.7 PD Medical Decision Making - ED course ED course: She presents with intermittent episodes of presyncope. The history is not consistent with vertigo. I be more worried about an intermittent arrhythmia. Her resting EKG is unremarkable and she was put on the monitor. CBC and CMP were only remarkable for very mild hypokalemia which we will replete orally. She was observed for a couple of hours, she would have an episode here, unfortunately she was not on the monitor at the time as she is just going to the bathroom. She was placed back on the monitor and had no further episodes. Discussed need for prolonged outpatient cardiac monitoring. Departure - Departure Disposition: 01 Home, Self Care Clinical Impression: Pre-syncope Condition: Good Record reviewed to determine appropriate education?: Yes Instructions: ED Near Syncope Unkn Comments: Follow-up with your primary care physician, next available appointment with consideration for placement of longer-term cardiac monitoring such as a "Zio patch." They may also want to consider echocardiography. Forms: PCP List Discharge Date/Time: 02/18/24 20:39
[2024-02-18 17:55] LABS: BASOPHILS # (AUTO) 0.1 10^3/uL (0.0-0.1); BASOPHILS % (AUTO) 0.6 %; EOSINOPHILS # (AUTO) 0.1 10^3/uL (0.0-0.7); EOSINOPHILS % (AUTO) 0.8 %; HGB - HEMOGLOBIN 14.1 g/dL (12.0-16.0); LYMPHOCYTES # (AUTO) 1.7 10^3/uL (1.5-3.5); LYMPHOCYTES % (AUTO) 18.5 %; MEAN CORPUSCULAR HGB CONC 34.4 g/dL (32.0-36.0); MEAN CORPUSCULAR VOLUME 81.3 fL (81.0-99.0); MEAN PLATELET VOLUME 9.9 fL (7.9-10.8); MONOCYTES # (AUTO) 0.4 10^3/uL (0.0-1.0); MONOCYTES % (AUTO) 4.3 %; NEUTROPHILS # (AUTO) 7.1 10^3/uL (1.5-6.6); NEUTROPHILS % (AUTO) 75.7 %; PLT - PLATELET COUNT 260 10^3/uL (130-450); RED BLOOD COUNT 5.04 10^6/uL (4.20-5.40); RED CELL DISTRIBUTION WIDTH 12.5 % (12.0-15.0); WHITE BLOOD COUNT 9.4 x10^3/uL (4.8-10.8)
[2024-02-18 18:24] LABS: ALBUMIN 4.8 g/dL (3.2-5.5); ALBUMIN/GLOBULIN RATIO 1.7 (1.0-2.2); BILIRUBIN,TOTAL 0.4 mg/dL (0.2-1.0); CALCIUM 9.8 mg/dL (8.5-10.3); CREATININE 0.7 mg/dL (0.6-1.3); MAGNESIUM 1.8 mg/dL (1.7-2.3); POTASSIUM 3.4 mmol/L (3.5-4.5); TOTAL PROTEIN 7.6 g/dL (6.4-8.9)
[2024-02-18] MEDS: POTASSIUM BICARB 25 MEQ TABLET PO STA (18:32)
[2024-02-18 20:16] VITALS: BP 106/79
== END 2024-02-18 20:39 | disposition home or self-care (01) ==
LOC: ED 16:47
DX: R55 Syncope and collapse (principal); Z91.81 History of falling; J45.909 Unspecified asthma, uncomplicated
CPT/HCPCS: 36415; 80053; 83735; 85025; 93005; 99283; 99284; A9270